=== PATIENT | female | born 1950 | race Caucasian/White ===

== ENCOUNTER → 2016-07-05 | Outpatient (CLI) | payer OTHER, MEDICARE, BC ==
[~2016-07-05] MED LIST: ATEN-173; LEVO100T48; LRT5 PO
== END | disposition home or self-care (01) ==
LOC: C.CPL 13:37
PROVIDERS: ATTEND Orthopaedic Surgery Sports Medicine
DX: Z01.810 Encounter for preprocedural cardiovascular examination (principal)

== ENCOUNTER → 2016-10-14 | Outpatient (CLI) | payer OTHER, MEDICARE ==
--- NOTE | 2016-10-17 15:51 | MAMMOGRAPHY REPORT ---
BILATERAL DIGITAL SCREENING MAMMOGRAM TOMOSYNTHESIS WITH CAD: 10/14/2016 CLINICAL HISTORY: Routine screening. TECHNIQUE: Breast tomosynthesis in addition to standard 2D mammography was performed. Current study was also evaluated with a Computer Aided Detection (CAD) system. COMPARISON: Comparison is made to exams dated: 10/14/2015 mammogram, 10/08/2014 mammogram, 09/20/2013 ev mogram, 09/19/2012 mammogram, 09/19/2011 mammogram, and 09/29/2010 mammogram - [facility]. BREAST COMPOSITION: The tissue of both breasts is almost entirely fatty. FINDINGS: No suspicious masses, calcifications, or areas of architectural distortion are noted in ei ther breast. There has been no significant interval change compared to prior exams. IMPRESSION: ACR BI-RADS CATEGORY 1: NEGATIVE There is no mammographic evidence of malignancy. A 1 year screening mammogram is recommended. The pa tient will receive written notification of the results. Approximately 10% of breast cancers are not detected with mammography. A negative mammographic report should not delay biopsy if a clinically suggestive mass is present. Susan Quiles M.D. /:10/14/2016 16:03:58 Securities Settlement Processor: Nevin WILEY(Chucho)(Landy), [facility] letter sent: Normal 1/2 BI-RADS Code: ACR BI-RADS Category 1: Negative
== END | disposition home or self-care (01) ==
LOC: C.MAMM 15:26
PROVIDERS: ATTEND Obstetrics & Gynecology
DX: Z12.31 Encounter for screening mammogram for malignant neoplasm of breast (principal)

== ENCOUNTER → 2016-10-24 | Outpatient (CLI) | payer OTHER, MEDICARE | END | disposition home or self-care (01) | LOC: C.PAPS 08:36 | PROVIDERS: ATTEND Obstetrics & Gynecology | DX: Z12.4 Encounter for screening for malignant neoplasm of cervix (principal) ==

== ENCOUNTER → 2016-12-04 | Outpatient (CLI) | payer OTHER, MEDICARE ==
--- NOTE | 2016-12-05 05:54 | PAP/PSG TECHNICIAN REPORT ---
[facility] [employer] Polysomnogram Report Study name: None Report date: 12/05/2016 Study date: 12/04/2016 Referring Physician: Owen CHEW M.D. Name: SHELLY LI Interpreting Physician: Juanjose Marcus M.D. Date of : 1950 Tier Truck Driver: Seth Ram RPSGT. Sex: Female Age: 66 StudyType: PSG Weight: 187 lbs 15.5 inches Height: 66 years, Height 4' 11" Neck Circum: BMI: 37.77 Medications: LEVOXYL 50 MCG, HYZAAR 100-25 MG, LOSARTAN HCTZ 100-25 MG, PRILOSEC 40 MG, Patient History PATIENT HAS HISTORY OF SNORING, DAYTIME FATIGUE AND NOCTURIA. SHE GENERALLY FEELS LIKE SHE DOESN'T GET ANY SLEEP WHEN SHE WAKES UP IN THE MORNING. SOMETIMES, SHE HAS TROUBLE FALLING ASLEEP AT NIGHT. SHE IS HERE TODAY FOR AN EVALUATION FOR JC. ESS = 10 RM 5 Parameters Monitored NPSG: E1-M2, E2-M1, Fp1-M2, Fp2-M1, F3-M2, F4-M2, F4-M1, C3-M2, C4-M2, C4-M1, O1-M2, O2-M2, O2-M1, T3-M2, T4-M1, P3-M2, P4-M1, CHIN1, CHIN2, HR, EKG, Legs, PFLOW, SNOR, FLOW, CFLOW, Tidal Volume, THOR, ABDO, SpO2, PLTH, CPRESS, ETCO2 Wave, ETCO2, pH Sleep Architecture Sleep Stages Time at Lights Off 9:43:12 PM STAGES Time (min.) TST (%) Time at Lights On 5:27:12 AM Wake 51.5 -- Total Recording Time (TRT) 465.50 min. N1 41.0 10 Total Sleep Period (TSP) 452.5 min. N2 265.5 64 Total Sleep Time (TST) 412.5min. N3 29.0 7 Awake Time 51.5 min. REM 77.0 19 Wake after Sleep Onset 41.0 min. Sleep Efficiency (SE) 89 % Sleep Onset Latency (LEONILA) 10.5 min. Number of Stage 1 Shifts None Awakenings 31 Stage Changes 120 Number of REM periods 5 REM 77.0 19 REM Latency 171.0 min. NREM 335.5 81 Body Position Analysis Supine Right Left Side Prone Vertical Total Sleep Time (min.) 134.2 120.0 178.5 298.47 0.0 0.0 Total Sleep Time (%) 28% 29% 43% 72 0% N/A% Total Sleep Time REM (min.) 14.0 28.0 35.0 None 0.0 0.0 Total Sleep Time NREM (min.) 100.0 92.0 143.5 None 0.0 0.0 Intermittent Wake (min.) 20.2 7.9 23.3 None 0.0 0.0 Total Sleep Period (%) 28% None None None None None Arousals Myoclonus (PLM) * Events Count Index Events Count Index Spontaneous 35 5 Events Awake (PLMW) 76 88.5 Respiratory 17 2.8 Events Asleep w/ Arousal (PLMA) 16 2.3 PLM 16 2 Events Asleep w/o Arousal (PLMS) 221 32.1 Snoring 29 4 Total Asleep 237 34.5 Total 94 14 Total 313 40 Respiratory Analysis * CA OA MA CH H RERA Total Count 2 3 0 0 103 5 108 Index 0.3 0.4 0.0 0 15.0 1 16.4 Mean Duration 11.7 18.2 0.0 0.00 16.7 13.8 16.5 Longest Duration 12.5 22.6 0.0 0.00 0.0 20.1 37.6 Respiratory Event Summary Total Supine ~Supine Right Left Prone REM NREM Apneas Count 5 0 5 1 4 N/A 2 3 Index 0.7 0 1 0.5 1.3 N/A 2 1 Hypopneas (4% Desat) Count 103 43 60 39 21 N/A 62 41 Index 15.0 22.6 12 19.5 7.1 N/A 48.3 7.3 Apneas & All Hypopneas Count 108 43 65 40 25 N/A 64 44 Index 15.7 23 13 20 8 N/A 49.9 7.9 Respiratory Events (Scarf Gluer+All Hyp+RERA) Count 108 46 67 41 26 N/A 64 44 Index 16.4 24 13 20.5 8.7 N/A 50.6 8.6 Respiratory Related Arousal Count 17 46 13 8 5 N/A 3 16 Index 2.8 3 3 4 2 N/A 2 3 Snoring Analysis Supine Right Left Prone REM NREM Total Snore duration 60.1 min Snores count 676 832 851 N/A 436 1,923 2,359 Snore mean duration 1.5 Sec Snores index 356 416 286 N/A 339.7 343.9 343.1 TST with snoring (%) 14.6% Desaturation Event Summary: Minimum %SpO2 Event Count Mean/Min/Max Duration(sec.) Desaturation Index % Time In Bed > 90 104 23.3 / 8.5 / 66.6 15.3 88.6 86 - 90 16 17.6 / 7.8 / 39.4 18.6 11.2 81 - 85 0 N/A 0.0 0.2 76 - 80 0 N/A 0.0 0.0 71 - 75 0 N/A 0.0 0.0 66 - 70 0 N/A 0.0 0.0 61 - 65 0 N/A 0.0 0.0 56 - 60 0 N/A 0.0 0.0 51 - 55 0 N/A 0.0 0.0 < 50 0 N/A 0.0 0.0 Total REM NREM Awake <50% 0.0 min. 0.0 min. 0.0 min. 0.0 min. 51 - 60% 0.0 min. 0.0 min. 0.0 min. 0.0 min. 61 - 70% 0.0 min. 0.0 min. 0.0 min. 0.0 min. 71 - 80% 0.0 min. 0.0 min. 0.0 min. 0.0 min. 81 - 90% 52.6 min. 25.4 min. 25.6 min. 1.6 min. 91 - 100% 409.0 min. 51.6 min. 309.8 min. 47.6 min. Average 92 91 92 93 Minimum SpO2 82 82 87 88 Desaturation Event Index 13.7 49.9 6.8 5.8 # Desat. Events below 89% 46 39 6 1 Time(%) with Saturation below 89% 1.8 1.6 0.2 0.0 Time(min.) with Saturation below 89% 8.5 7.6 0.8 0.1 Time (mins) REM (mins) NREM (mins) % of TST SpO2 Below 90% 96 62 N34 4.2 SpO2 Below 88% 18 0 0 1 Heart Rate Analysis Min (bpm) Max (bpm) Average (bpm) Awake 57 100 71 NREM 54 85 67 REM 56 83 66 Overall 54 85 67 Supplemental O2 Values Minimum O2 level: None Value Start Time End Time Tier [employer] Comments Mrs. Li slept in the right, left an supine positions. No cardiac arrhythmia noted. Leg movements noted. No bruxism noted. Snoring was noted and scored as a 3 on a scale of 1 through 5. (0=no snoring, 5=snoring loud enough to be heard through a closed door or down the pham way) Mrs. Li awoke to use the restroom 0 times during the night. Mrs. Li stated I did not sleep as well as I do when I am in my own bed. The final report will be interpreted and signed by a sleep physician. The completed physician report will then be placed in the patient medical record. Therapy (cm H2O) 0 TIB (min.) 464.0 TST (min.) 412.5 Sleep Onset (min.) 10.5 REM Onset From Sleep (min.) 171.0 Sleep Efficiency % 89 Wakefulness (%) 11 Wakefulness (min.) 51.5 NREM 1 (%) 10 NREM 1 (min.) 41.0 NREM 2 (%) 64 NREM 2 (min.) 265.5 NREM 3 (%) 7 NREM 3 (min.) 29.0 REM (%) 19 REM (min.) 77.0 # Arousals 94 Arousal Index 14 # Snore 2,359 Snore Index 343.1 AHI 15.7 AHI Supine 23 AHI Non-Supine 13 NREM AHI 7.9 REM AHI 49.9 RDI 16.4 # Obstructive Apnea 3 # Central Apnea 2 # Mixed Apnea 0 # Hypopneas 103 RERAs 5 Total Respiratory Events 113 Time Below SpO2 89% (min.) 8.4 Mean NREM SpO2 (%) 92 Mean REM SpO2 (%) 91 Mean Sleep SpO2 (%) 92 Min NREM SpO2 (%) 87 Min REM SpO2 (%) 82 Position Supine (min.) 134.2 Position Non-supine (min.) 298.5 LM Index Sleep 34.5 LM Index NREM 40.4 LM Index REM 8.6 Mean Heart Rate (bpm) 67 Min Heart Rate (bpm) 54
--- NOTE | 2016-12-07 12:53 | POLYSOMNOGRAPH REPORT ---
CLINICAL DATA: A 66-year-old female with a BMI of 37.[address] Urbano Enriquez and FAVIO Diego for evaluation of snoring, daytime fatigue, nocturia, and fragmented sleep architecture. Her Deshler sleepiness score is 10/24. SLEEP ARCHITECTURE: Total sleep period was 452.5 minutes. Total sleep time was 412.5 minutes divided between 335.5 minutes of non-REM sleep and 77 minutes of REM sleep. Sleep onset latency was 10.5 minutes. REM latency was 171 minutes. Sleep efficiency was 89%. Wake after sleep onset was 41 minutes. Sleep consisted of stage N1 10%, stage N2 64%, stage N3 7%, and REM 19%. AROUSAL DATA: Ninety-four arousals recorded for an index of 14 per hour. PLM DATA: Moderately elevated limb movements during sleep were noted. There were 237 limb movements during sleep noted for an index of 34.5 per hour with arousal index of 2.3 per hour. RESPIRATORY DATA: Moderate sleep apnea was documented. The AHI was 15.7. The RDI was 16.4. There were 2 central and 3 obstructive apneic episodes. The longest apneic episode was 22.6 seconds. There were 103 hypopneic episodes. The mean duration of hypopnea was 16.7 seconds. There were 5 RERAs. The longest RERA was 20.1 seconds. OXIMETRY DATA: Nocturnal hypoxemia was seen. Oxygen paco was 82% during REM. The mean saturation was 92%. Time below 88% was 18 minutes. EKG: Heart rates ranged from 54 to 85 beats per minute. No arrhythmias were noted. BANKRUPTCY PROCESSOR'S COMMENTS: The patient slept in the right, left, and supine positions. Snoring was moderate, rated 3 on a scale of 1-5. IMPRESSION: Moderate sleep apnea/hypopnea with nocturnal hypoxemia. RECOMMENDATIONS: The patient may benefit from a repeat sleep study with CPAP or use of an oral compliance. Clinical correlation is needed. SHERMAN
== END | disposition home or self-care (01) ==
LOC: C.NEUR 21:00
PROVIDERS: ATTEND Nurse Practitioner Family
DX: G47.30 Sleep apnea, unspecified (principal)